=== PATIENT | male | born 1990 | race African-American/Black ===

== ENCOUNTER 2024-02-28 16:25 | Emergency (ER) | payer OTHER, SELFPAY ==
--- NOTE | 2024-02-28 16:34 | PC.NURSE ---
Pt left without being seen. He stated he swallowed a nail and had 1 hour before it moved through his GI track. Heading to [facility] ED.
--- NOTE | 2024-02-28 16:43 | PC.NURSE ---
Pt left without being seen. He states he swallowed a nail and has 1 hr to get it out. He is heading to [facility] ED.
== END 2024-02-28 17:04 | disposition left against medical advice (07) ==
LOC: ANHED 16:54
DX: T18.9XXA Foreign body of alimentary tract, part unspecified, initial encounter (principal); W44.D9XA Other magnetic metal objects entering into or through a natural orifice, initial encounter
CPT/HCPCS: 99199